=== PATIENT | female | born 1970 | race Caucasian/White ===

== ENCOUNTER 2018-08-02 14:58 | Emergency (ER) | payer SELFPAY ==
[~2018-08-02] VITALS: Ht 160 cm; Wt 90.0 kg
[~2018-08-02 14:58] MED LIST: AMOXICILLIN500 MG PO; BACTRIM DS1 TAB PO; CLARITIN10 M2 PO; FLONASE NASAL50 MCG NAB; GLIPIZIDE5 MG PO; GLUCOTROL5 MG PO; LEVEMIR FL100 UNIT/M SC; LISINOPRIL5 MG PO; METFORMIN1000 MG OR; METFORMIN500 MG PO; NAPROSYN500 MG PO; NO CURRENT MEDS; PAROXETINE20 MG PO; PERCOCET1 TA4 PO; PROZAC10 MG PO; ULTRAM50 MG OR; ULTRAM50 MG PO; XANAX0.25 MG OR
[2018-08-02 15:57] LABS: HEMATOCRIT 37.1 % (37.0-47.0); IMMATURE GRANULOCYTES 0.7 % (0.0-5.0); MEAN CELL VOLUME 90.3 fL CALC (80.0-100.0); MEAN CORPUSCULAR HGB 30.4 pG CALC (26.0-32.0); MEAN CORPUSCULAR HGB CONC 33.7 g/L CALC (32.0-36.0); NEUT# 6.14 thou/uL (2.00-7.15); RED BLOOD COUNT 4.11 mill/uL (4.20-5.60); RED CELL DISTRI WIDTH 13.1 % (11.5-15.5)
[2018-08-02 16:07] LABS: HEMOGLOBIN 12.5 g/dl (12.0-16.0)
[2018-08-02 16:20] LABS: ALBUMIN 4.6 g/dL (3.2-5.0); ALKALINE PHOSPHATASE 84 u/l (38-126); ANION GAP 19 (6-22 (CALC)); BILIRUBIN, TOTAL 0.4 mg/dL (0.0-1.4); BUN 19 mg/dL (7-17); BUN/CREATININE RATIO 21 (12-20 (CALC)); CARBON DIOXIDE 26 mmol/l (22-30); CHLORIDE 95 mmol/l (95-108); CREATININE 0.9 mg/dL (0.5-1.0); GFR > 60 ML/MIN (>=60 (CALC)); GFR FOR AFR.AMER. > 60 ML/MIN (>=60 (CALC)); POTASSIUM 4.4 mmol/l (3.5-5.1); SODIUM 136 mmol/l (137-146); TOTAL PROTEIN 7.9 g/dL (6.3-8.2)
[2018-08-02 16:28] LABS: SGOT/AST 45 u/l (14-36)
[2018-08-02] MEDS ORDERED: LEVEMIR100 UNIT/M SC (17:03)
[2018-08-02] MEDS ORDERED: METFORMIN500 MG PO (17:03)
[2018-08-02] MEDS ORDERED: ASPIRIN81 MG PO (17:04)
[2018-08-02] MEDS ORDERED: GABAPENTIN100 MG PO (17:04)
[2018-08-02] MEDS ORDERED: VITAMIN D35000 UNIT PO (17:05)
[2018-08-02] MEDS ORDERED: LISINOP/HCTZ1 TA1 PO (17:05)
[2018-08-02] MEDS ORDERED: RISPERDAL0.25 MG PO (17:06)
[2018-08-02 17:30] LABS: URINE BILIRUBIN - DIPSTICK NEGATIVE (NEGATIVE); URINE BLOOD DIPSTICK NEGATIVE (NEGATIVE); URINE COLOR YELLOW; URINE GLUCOSE - DIPSTICK >=1000 mg/dL (NEGATIVE); URINE KETONE NEGATIVE (NEGATIVE); URINE LEUK ESTERASE NEGATIVE (NEGATIVE); URINE NITRITE - DIPSTICK NEGATIVE (Negative); URINE PROTEIN - DIPSTICK NEGATIVE (NEG-TRACE); URINE UROBILINOGEN - DIPSTICK 0.2 E.U./dL (0.2)
[2018-08-02 19:58] VITALS: BP 160/73
[2018-08-03] MEDS ORDERED: NOVOLOG FL100 UNIT/M SC (23:07)
== END 2018-08-02 19:57 | disposition home or self-care (01) | DRG 639 ==
LOC: ED 14:58
PROVIDERS: Family Medicine
DX: E11.65 Type 2 diabetes mellitus with hyperglycemia (principal); Z79.84 Long term (current) use of oral hypoglycemic drugs

== ENCOUNTER 2018-08-03 21:10 | Emergency (ER) | payer SELFPAY ==
[~2018-08-03] VITALS: Ht 157.5 cm; Wt 83.2 kg
[~2018-08-03 21:10] MED LIST changes: +ASPIRIN81 MG PO; +GABAPENTIN100 MG PO; +LEVEMIR100 UNIT/M SC; +LISINOP/HCTZ1 TA1 PO; +RISPERDAL0.25 MG PO; +VITAMIN D35000 UNIT PO
[2018-08-03] MEDS ORDERED: NOVOLOG FL100 UNIT/M SC (23:07)
[2018-08-03 23:15] VITALS: BP 130/62
== END 2018-08-03 23:15 | disposition home or self-care (01) | DRG 639 ==
LOC: ED 21:10
DX: E11.65 Type 2 diabetes mellitus with hyperglycemia (principal); Z79.84 Long term (current) use of oral hypoglycemic drugs; Z79.4 Long term (current) use of insulin; I10 Essential (primary) hypertension

== ENCOUNTER 2019-10-08 12:45 | Emergency (ER) | payer SELFPAY ==
[~2019-10-08] VITALS: Ht 157.5 cm; Wt 73.3 kg
[~2019-10-08 12:45] MED LIST changes: +NOVOLOG FL100 UNIT/M SC
[2019-10-08 13:29] LABS: IMMATURE GRANULOCYTES 0.4 % (0.0-5.0); MEAN CELL VOLUME 85.6 fL CALC (80.0-100.0); MEAN CORPUSCULAR HGB 28.9 pG CALC (26.0-32.0); MEAN CORPUSCULAR HGB CONC 33.8 g/dL CAL (32.0-36.0); NEUT# 6.89 thou/uL (2.00-7.15); RED BLOOD COUNT 5.61 mill/uL (4.20-5.60); RED CELL DISTRI WIDTH 13.6 % (11.5-15.5)
[2019-10-08 13:31] LABS: HEMOGLOBIN 16.2 g/dl (12.0-16.0)
[2019-10-08 13:40] LABS: INTERNATIONAL NORMALIZED RATIO 0.9 RATIO (0.7-1.3); PROTHROMBIN TIME 9.8 SECONDS (9.0-12.5)
[2019-10-08 13:43] LABS: ALBUMIN 4.7 g/dL (3.2-5.0); ALKALINE PHOSPHATASE 112 u/l (38-126); ANION GAP 14 (6-22 (CALC)); BILIRUBIN, TOTAL 0.5 mg/dL (0.0-1.4); BUN 16 mg/dL (7-17); BUN/CREATININE RATIO 27 (12-20 (CALC)); CARBON DIOXIDE 30 mmol/l (22-30); CHLORIDE 93 mmol/l (95-108); CREATININE 0.6 mg/dL (0.5-1.0); ETHYL ALCOHOL 0 mg/dl (0-30); GFR > 60 ML/MIN (>=60 (CALC)); GFR FOR AFR.AMER. > 60 ML/MIN (>=60 (CALC)); LIPASE 126 u/l (23-300); POTASSIUM 4.3 mmol/l (3.5-5.1); SGOT/AST 24 u/l (14-36); SODIUM 133 mmol/l (137-146); TOTAL PROTEIN 8.9 g/dL (6.3-8.2)
[2019-10-08 14:08] VITALS: BP 146/80
== END 2019-10-08 15:31 | disposition short-term general hospital (02) | DRG 66 ==
LOC: ED 12:45
PROVIDERS: Family Medicine
DX: I63.9 Cerebral infarction, unspecified (principal); R20.2 Paresthesia of skin; R29.702 NIHSS score 2; R07.9 Chest pain, unspecified; E11.9 Type 2 diabetes mellitus without complications; I10 Essential (primary) hypertension; Z79.4 Long term (current) use of insulin
CPT/HCPCS: Q9967

== ENCOUNTER 2019-10-30 21:13 | Emergency (ER) | payer MEDICAID ==
[2019-10-30 22:05] LABS: HEMATOCRIT 43.9 % (37.0-47.0); HEMOGLOBIN 14.6 g/dl (12.0-16.0); IMMATURE GRANULOCYTES 0.5 % (0.0-5.0); MEAN CELL VOLUME 87.8 fL CALC (80.0-100.0); MEAN CORPUSCULAR HGB 29.2 pG CALC (26.0-32.0); MEAN CORPUSCULAR HGB CONC 33.3 g/dL CAL (32.0-36.0); NEUT# 9.31 thou/uL (2.00-7.15); RED CELL DISTRI WIDTH 13.3 % (11.5-15.5)
[2019-10-30 22:07] LABS: URINE BILIRUBIN - DIPSTICK NEGATIVE (NEGATIVE); URINE BLOOD DIPSTICK NEGATIVE (NEGATIVE); URINE COLOR YELLOW; URINE GLUCOSE - DIPSTICK >=1000 mg/dL (NEGATIVE); URINE KETONE NEGATIVE (NEGATIVE); URINE LEUK ESTERASE NEGATIVE (NEGATIVE); URINE NITRITE - DIPSTICK NEGATIVE (Negative); URINE PROTEIN - DIPSTICK NEGATIVE (NEG-TRACE); URINE SPECIFIC GRAVITY >=1.030; URINE UROBILINOGEN - DIPSTICK 0.2 E.U./dL (0.2)
[2019-10-30 22:26] LABS: ALBUMIN 4.5 g/dL (3.2-5.0); ALKALINE PHOSPHATASE 94 u/l (38-126); ANION GAP 16 (6-22 (CALC)); BILIRUBIN, TOTAL 0.5 mg/dL (0.0-1.4); BUN 27 mg/dL (7-17); BUN/CREATININE RATIO 29 (12-20 (CALC)); CARBON DIOXIDE 27 mmol/l (22-30); CHLORIDE 96 mmol/l (95-108); CPK 31 u/l (30-165); CREATININE 0.9 mg/dL (0.5-1.0); ETHYL ALCOHOL 0 mg/dl (0-30); GFR > 60 ML/MIN (>=60 (CALC)); GFR FOR AFR.AMER. > 60 ML/MIN (>=60 (CALC)); POTASSIUM 4.9 mmol/l (3.5-5.1); SGOT/AST 19 u/l (14-36); SODIUM 133 mmol/l (137-146); TOTAL PROTEIN 8.1 g/dL (6.3-8.2)
[2019-10-30 22:54] LABS: TSH, 3RD GENERATION 1.68 uIU/mL (0.47 - 4.68)
[2019-10-31 00:19] VITALS: BP 131/68
== END 2019-10-31 00:19 | disposition home or self-care (01) | DRG 897 ==
LOC: ED 21:13
PROVIDERS: Family Medicine
DX: F15.10 Other stimulant abuse, uncomplicated (principal); E11.9 Type 2 diabetes mellitus without complications; I10 Essential (primary) hypertension; Z79.4 Long term (current) use of insulin; Z11.59 Encounter for screening for other viral diseases

== ENCOUNTER 2019-11-15 06:46 | Emergency (ER) | payer MEDICAID ==
[~2019-11-15] VITALS: Ht 157.5 cm; Wt 72.0 kg
[2019-11-15 07:40] LABS: HEMATOCRIT 41.8 % (37.0-47.0); HEMOGLOBIN 14.2 g/dl (12.0-16.0); IMMATURE GRANULOCYTES 0.3 % (0.0-5.0); MEAN CELL VOLUME 86.4 fL CALC (80.0-100.0); MEAN CORPUSCULAR HGB 29.3 pG CALC (26.0-32.0); NEUT# 7.85 thou/uL (2.00-7.15); RED BLOOD COUNT 4.84 mill/uL (4.20-5.60); RED CELL DISTRI WIDTH 12.9 % (11.5-15.5)
[2019-11-15 07:44] LABS: URINE BILIRUBIN - DIPSTICK NEGATIVE (NEGATIVE); URINE BLOOD DIPSTICK NEGATIVE (NEGATIVE); URINE COLOR YELLOW; URINE GLUCOSE - DIPSTICK >=1000 mg/dL (NEGATIVE); URINE KETONE NEGATIVE (NEGATIVE); URINE LEUK ESTERASE NEGATIVE (NEGATIVE); URINE NITRITE - DIPSTICK NEGATIVE (Negative); URINE PROTEIN - DIPSTICK NEGATIVE (NEG-TRACE); URINE SPECIFIC GRAVITY 1.015; URINE UROBILINOGEN - DIPSTICK 0.2 E.U./dL (0.2)
[2019-11-15 07:56] LABS: URINE BACTERIA FEW hpf; URINE SQUAMOUS EPITHELIAL CELL MANY EPI/hpf (0-FEW)
[2019-11-15 07:57] LABS: ALBUMIN 4.7 g/dL (3.2-5.0); ALKALINE PHOSPHATASE 101 u/l (38-126); ANION GAP 13 (6-22 (CALC)); BILIRUBIN, TOTAL 0.4 mg/dL (0.0-1.4); BUN 24 mg/dL (7-17); BUN/CREATININE RATIO 34 (12-20 (CALC)); CARBON DIOXIDE 27 mmol/l (22-30); CHLORIDE 99 mmol/l (95-108); CREATININE 0.7 mg/dL (0.5-1.0); ETHYL ALCOHOL 0 mg/dl (0-30); GFR > 60 ML/MIN (>=60 (CALC)); GFR FOR AFR.AMER. > 60 ML/MIN (>=60 (CALC)); MAGNESIUM 1.7 mg/dL (1.6-2.3); POTASSIUM 4.3 mmol/l (3.5-5.1); SGOT/AST 17 u/l (14-36); SODIUM 134 mmol/l (137-146); TOTAL PROTEIN 8.2 g/dL (6.3-8.2)
[2019-11-15] MEDS ORDERED: CEPHALEXIN500 MG PO (10:04)
[2019-11-15 10:32] VITALS: BP 151/83
== END 2019-11-15 11:05 | disposition short-term general hospital (02) | DRG 880 ==
LOC: ED 06:46
PROVIDERS: Emergency Medicine
DX: R45.851 Suicidal ideations (principal); N39.0 Urinary tract infection, site not specified; F32.9 Major depressive disorder, single episode, unspecified; I10 Essential (primary) hypertension; E11.9 Type 2 diabetes mellitus without complications; Z86.73 Personal history of transient ischemic attack (TIA), and cerebral infarction without residual deficits